=== PATIENT | female | born 1945 | race Two or more races ===

== ENCOUNTER 2020-02-20 17:52 | Inpatient (IN) | payer OTHER ==
[~2020-02-20] VITALS: Ht 149.9 cm; Wt 51.4 kg
[2020-02-20 19:06] LABS: Basophils # (auto) 0.1 10 ^3/uL (0-0.2); Basophils % (auto) 0.7 % (0.0-2.0); Eosinophils # (auto) 0.1 10 ^3/uL (0-0.8); Eosinophils % (auto) 1.1 % (0.0-7.0); Hematocrit 44.9 % (36.0-46.0); Hemoglobin 14.1 g/dL (12.2-16.2); Lymphocytes # (auto) 0.7 10 ^3/uL (0.4-5.4); Lymphocytes % (auto) 10.1 % (10.0-50.0); Mean Corpuscular Hemoglobin 27.9 pg (28.0-32.0); Mean Corpuscular Hgb Conc. 31.4 g/dL (32.0-36.0); Monocytes # (auto) 0.7 10 ^3/uL (0-1.3); Monocytes % (auto) 8.9 % (0.0-12.0); Neutrophils # (auto) 5.9 10 ^3/uL (1.6-8.6); Neutrophils % (auto) 79.2 % (37.0-80.0); Platelet Count (auto) 119 10^3/uL (140-450); Red Blood Cells 5.04 10^6/uL (4.0-5.20); Red Cell Distribution Width 19.4 % (11.8-14.3); White Blood Cell 7.4 10^3/uL (4.4-10.8)
[2020-02-20 19:18] LABS: Albumin 2.7 g/dL (3.4-5.0); Anion Gap 10 (5-15); Blood Urea Nitrogen 31 mg/dL (7-18); Calcium 9.3 mg/dL (8.5-10.1); Carbon Dioxide 28 mmol/L (21-32); Chloride 98 mmol/L (98-107); Glucose 68 mg/dL (74-106); Potassium 4.5 mmol/L (3.5-5.1); Sodium 136 mmol/L (136-145)
[2020-02-20 19:20] LABS: Alanine Aminotransferase 13 U/L (13-56); Aspartate Aminotransferase 26 U/L (15-37); BUN/Creatinine Ratio 5.7; GFR African American 10 mL/min; GFR Non-African American 8 mL/min
[2020-02-20 19:22] LABS: Alkaline Phosphatase 98 U/L (45-117); Bilirubin, Total 0.7 mg/dL (0.2-1.0); Total Protein 6.3 g/dL (6.4-8.2)
[2020-02-20 19:42] LABS: INR 1.06 (0.9-1.15)
[2020-02-20] MEDS ORDERED: LABETALOL HCL 5 MG/ML 4ML SYRINGE IV ONE ×2 (19:45→21:15)
[2020-02-20 20:02] LABS: Partial Thromboplastin Time 105.6 sec (23.0-31.2)
[2020-02-20 20:31] LABS: Acetaminophen < 2.0 ug/mL (10-30); Salicylate < 1.7 mg/dL (2.8-20.0)
[2020-02-20] MEDS ORDERED: DexAMETHasone SOD PHOS 10MG/1ML VIAL INJ IV ONE (21:00)
[2020-02-20] MEDS ORDERED: DEXTROSE 50% SYRINGE 50 ML IV ONE (22:30)
[2020-02-20] MEDS ORDERED: DOXYCYCLINE 100MG/250ML 250 ML IV ONE (22:45)
[2020-02-20] MEDS ORDERED: DEXTROSE (50%) 50ML SYRG IV ONE (23:00)
[2020-02-20 23:20] LABS: Urine Bacteria FEW /hpf (None Seen); Urine Blood TRACE /uL (Negative); Urine Specific Gravity 1.006 (1.001-1.035); Urine WBC 2 /hpf (0 - 5)
[2020-02-20 23:39] LABS: Alcohol, Urine < 3.0 mg/dL (0-10); Amphetamine Screen, Urine NEGATIVE (NEGATIVE); Barbiturate Scree,Urine NEGATIVE (NEGATIVE); Benzodiazephine Screen, Urine NEGATIVE (NEGATIVE); Cannabinoid Screen, Urine NEGATIVE (NEGATIVE); Cocaine Screen, Urine NEGATIVE (NEGATIVE); Opiate Scree,Urine NEGATIVE (NEGATIVE); Phencyclidine Screen, Urine NEGATIVE (NEGATIVE)
[2020-02-21] MEDS ORDERED: ONDANSETRON HCL 4 MG/2 ML VIAL IV PRN (00:30)
[2020-02-21] MEDS ORDERED: ACETAMINOPHEN 325 MG TAB PO PRN (00:30)
[2020-02-21] MEDS ORDERED: MORPHINE SULF INJ 2 MG/ML SYRINGE 1ML IV PRN (00:30)
[2020-02-21] MEDS ORDERED: cloNIDine HCL 0.1 MG TAB PO PRN ×2 (00:30→07:45)
[2020-02-21] MEDS ORDERED: NITROGLYCERIN 0.4 MG SL TAB SL PRN (00:30)
[2020-02-21] MEDS ORDERED: cloNIDine HCL 0.1 MG TAB ONE (00:55)
[2020-02-21 01:34] LABS: Magnesium 2.5 mg/dL (1.6-2.6)
[2020-02-21] MEDS ORDERED: hydrALAZINE HCL 20 MG/ML VL ONE (01:37)
[2020-02-21 01:43] LABS: CRP High Sensitivity 4.58 mg/dL (< 0.3)
[2020-02-21] MEDS ORDERED: hydrALAZINE HCL 20 MG/ML VL IV ONE (02:00)
[2020-02-21] MEDS ORDERED: ENALAPRILAT 1.25 MG/ML-1ML VIAL IV ONE (03:30)
[2020-02-21] MEDS ORDERED: LABETALOL HCL 5 MG/ML 4ML SYRINGE IV ONE (06:00)
[2020-02-21] MEDS: DOXYCYCLINE 100MG/250ML 250 ML IV SCH ×2 (08:16→22:00)
[2020-02-21] MEDS ORDERED: ZINC SULFATE 220mg CAP or TAB PO SCH (10:00)
[2020-02-21] MEDS ORDERED: ASCORBIC ACID 1,000 MG TAB PO SCH (10:00)
[2020-02-21] MEDS ORDERED: CARVEDILOL 3.125 MG TAB PO SCH (10:00)
[2020-02-21] MEDS ORDERED: CHOLECALCIFEROL (VITD3) 2,000 UNIT CAP PO SCH (10:00)
[2020-02-21] MEDS: ASPirin 81 mg TAB PO SCH (10:14)
[2020-02-21] MEDS: amLODIPine BESYLATE 5 MG TAB PO SCH (10:15)
[2020-02-21] MEDS: PANTOPRAZOLE 40 MG TAB PO SCH (10:15)
[2020-02-21] MEDS ORDERED: cefTRIAXone 1GM/50ML D5W 50 ML IV ONE (11:45)
--- NOTE | 2020-02-21 12:45 | NUR ---
02/21/2020 1245 Received hard copy from [facility] for in patient stay for 02/21/20 -02/25/20 @ 1000am authorization #[id number].
[2020-02-21] MEDS ORDERED: ENOXAPARIN SOD 60 MG/0.6 ML SYRINGE SC ONE (15:15)
[2020-02-21] MEDS ORDERED: HYDROcodone-ACET 5/325MG TAB PO ONE (21:30)
[2020-02-21] MEDS: ATORVASTATIN 20 MG TAB PO SCH (22:00)
[2020-02-21] MEDS: CARVEDILOL 12.5 MG TAB PO SCH (22:00)
--- NOTE | 2020-02-21 22:40 | NUR ---
assumed care of pt at this time. no s/s of distress, however pt is stating that she does not want to be here. alert with confusion, unable to answer interview questions at this time. tunneled catheter to rt upper chest area, f/c to gravity, and 2 IV to Left are flushing freely. Pt is currently saying she does not want to live and asking why she is here. Pt reassured and hand held for comfort. Pt given marcella care for BM, and extra blanket because stating she is cold. Temp is 97.4.
[2020-02-22 05:49] VITALS: BP 139/83
[2020-02-22 06:48] LABS: Albumin 2.5 g/dL (3.4-5.0); Calcium 9.3 mg/dL (8.5-10.1); Potassium 4.4 mmol/L (3.5-5.1)
[2020-02-22 06:51] LABS: BUN/Creatinine Ratio 6.8; Bilirubin, Total 0.4 mg/dL (0.2-1.0); Total Protein 5.5 g/dL (6.4-8.2)
[2020-02-22 07:06] LABS: Basophils # (auto) 0 10 ^3/uL (0-0.2); Basophils % (auto) 0.5 % (0.0-2.0); Eosinophils # (auto) 0.1 10 ^3/uL (0-0.8); Eosinophils % (auto) 1.3 % (0.0-7.0); Hematocrit 37.3 % (36.0-46.0); Lymphocytes # (auto) 0.7 10 ^3/uL (0.4-5.4); Lymphocytes % (auto) 11.1 % (10.0-50.0); Mean Corpuscular Hemoglobin 28.3 pg (28.0-32.0); Mean Corpuscular Hgb Conc. 32.1 g/dL (32.0-36.0); Monocytes # (auto) 0.5 10 ^3/uL (0-1.3); Neutrophils # (auto) 5.1 10 ^3/uL (1.6-8.6); Neutrophils % (auto) 79.1 % (37.0-80.0); Nucleated Red Blood Cells % 0.1 %; Platelet Count (auto) 113 10^3/uL (140-450); Red Blood Cells 4.23 10^6/uL (4.0-5.20); Red Cell Distribution Width 19.3 % (11.8-14.3); White Blood Cell 6.4 10^3/uL (4.4-10.8)
--- NOTE | 2020-02-22 08:30 | NUR ---
Patient resting comfortably in bed with no distress noted. Sitter at bedside. Patient stable at this time.
[2020-02-22 09:00] VITALS: BP 160/85
[2020-02-22] MEDS: cefTRIAXone 1GM/50ML D5W 50 ML IV SCH (09:33)
[2020-02-22] MEDS: amLODIPine BESYLATE 5 MG TAB PO SCH (09:34)
[2020-02-22] MEDS: PANTOPRAZOLE 40 MG TAB PO SCH (09:34)
[2020-02-22] MEDS: CARVEDILOL 12.5 MG TAB PO SCH ×2 (09:35→22:00)
--- NOTE | 2020-02-22 09:35 | NUR ---
Scheduled po and IV abx given per order. Patient shows signs of confusion. Patient stable with sitter at bedside.
[2020-02-22] MEDS: ASPirin 81 mg TAB PO SCH (09:36)
[2020-02-22] MEDS ORDERED: ENOXAPARIN SOD 60 MG/0.6 ML SYRINGE SC SCH (10:00)
--- NOTE | 2020-02-22 10:25 | NUR ---
Echo in progress. Scheduled IV abx given per order. Patient stable at this time. Sitter also at bedside.
[2020-02-22] MEDS: ASCORBIC ACID 500 MG TAB PO SCH (10:33)
[2020-02-22] MEDS: DOXYCYCLINE 100MG/250ML 250 ML IV SCH ×2 (10:33→22:48)
--- NOTE | 2020-02-22 11:15 | NUR ---
Patient stable with Dr. Li at bedside. Sitter also at bedside.
[2020-02-22 13:00] VITALS: BP 128/73
--- NOTE | 2020-02-22 14:00 | NUR ---
Patient resting comfortably in bed with sitter at bedside; no distress noted at this time. Patient stable.
[2020-02-22 17:00] VITALS: BP 124/71
--- NOTE | 2020-02-22 18:00 | NUR ---
Patient stable throughout shift; sitter at bedside.
--- NOTE | 2020-02-22 19:40 | NUR ---
Opening Shift Note Assumed care of patient, awake and alert, oriented mostly to self only. No S/S of distress/SOB or pain. Instructed on POC and to call for assist PRN, will continue to monitor for changes Q1hr and PRN. Sitter at bedside for patient safety.
[2020-02-22 22:00] VITALS: BP 145/71
--- NOTE | 2020-02-22 22:04 | NUR ---
CONSULT: DR. GLORIA, SPLICER HELPER CALLED RE; CONSULT. AFTER UPDATING MD FOR REASON OF CONSULT, HE STATED HE WILL SEE PT TOMORROW. INFORMED PRIMARY RN AARON Goldman
[2020-02-22] MEDS: ATORVASTATIN 20 MG TAB PO SCH (22:48)
[2020-02-23 05:00] VITALS: BP 134/89
[2020-02-23] MEDS: hydrALAZINE HCL 20 MG/ML VL IV PRN ×2 (05:56→22:49)
--- NOTE | 2020-02-23 07:30 | NUR ---
Patient has no complains at this time, no signs nor symptoms of respiratory distress. Report given to oncoming RN.
[2020-02-23 09:00] VITALS: BP 149/71
--- NOTE | 2020-02-23 09:45 | NUR ---
Patient sitting in chair at bedside; patient stable with Dr. Blancas and sitter at bedside.
[2020-02-23] MEDS: cefTRIAXone 1GM/50ML D5W 50 ML IV SCH (10:09)
--- NOTE | 2020-02-23 10:09 | NUR ---
Patient sitting in chair at bedside. Scheduled IV abx given per order. Patient stable with sitter at bedside.
[2020-02-23] MEDS: amLODIPine BESYLATE 5 MG TAB PO SCH (10:31)
[2020-02-23] MEDS: ASPirin 81 mg TAB PO SCH (10:31)
[2020-02-23] MEDS: PANTOPRAZOLE 40 MG TAB PO SCH (10:31)
--- NOTE | 2020-02-23 10:31 | NUR ---
Scheduled medications po medications given per order. Patient sitting in chair at bedside. Patient stable with sitter at bedside.
[2020-02-23] MEDS: ASCORBIC ACID 500 MG TAB PO SCH (10:32)
[2020-02-23] MEDS: CARVEDILOL 12.5 MG TAB PO SCH ×2 (10:32→21:37)
[2020-02-23] MEDS: DOXYCYCLINE 100MG/250ML 250 ML IV SCH ×2 (10:41→21:37)
[2020-02-23] MEDS ORDERED: SODIUM CHL 0.9% 1000 ML BAG XX ONE (11:30)
[2020-02-23 13:00] VITALS: BP 145/73
--- NOTE | 2020-02-23 14:15 | NUR ---
Patient sitting in chair at bedside; sitter at bedside. Patient stable at this time.
--- NOTE | 2020-02-23 15:50 | NUR ---
Patient sitting in chair with sitter at bedside. Denies any pain at this time. Patient stable.
[2020-02-23 17:00] VITALS: BP 157/88
--- NOTE | 2020-02-23 17:30 | NUR ---
Patient sitting in chair at bedside. Patient stable with sitter at bedside.
--- NOTE | 2020-02-23 18:15 | NUR ---
Patient resting comfortably in bed with sitter at bedside. Patient stable throughout shift.
--- NOTE | 2020-02-23 19:35 | NUR ---
Opening Shift Note Assumed care of patient, awake and alert, oriented mostly to self only. Patient trying to pull IV access and mittal catheter, needed to be re-oriented. No S/S of distress/SOB or pain. Instructed on POC and to call for assist PRN, will continue to monitor for changes Q1hr and PRN. Sitter at bedside for patient safety.
[2020-02-23] MEDS: ATORVASTATIN 20 MG TAB PO SCH (21:38)
[2020-02-23 22:00] VITALS: BP 158/89
[2020-02-24 05:00] VITALS: BP_SYST 150; BP_SYST 186; BP_DIAS 78; BP_DIAS 97
--- NOTE | 2020-02-24 06:49 | NUR ---
Patient resting comfortably in bed, no complains of pain, no signs nor symptoms of respiratory distress. Report will be given to oncoming RN.
--- NOTE | 2020-02-24 07:47 | NUR ---
PATIENT ROUNDS PATIENT LYING IN BED, NO DISTRESS NOTED. RR EQUAL AND NONLABORED, NO SIGNS OF DISTRESS OR DISCOMFORT. BED IN LOWEST POSITION, SIDE RAILS UP X2, CALL LIGHT WITHIN REACH. PATIENT ENCOURAGED TO CALL IF THEY NEED ANYTHING. WILL CONTINUE TO MONITOR. Addendum: 02/24/20 at 0752 by Jeanine Deutsch RN WORKERS COMPENSATION CLAIMS ANALYST AT BEDSIDE.
[2020-02-24 09:00] VITALS: BP 147/82
[2020-02-24] MEDS: CARVEDILOL 12.5 MG TAB PO SCH ×2 (10:00→22:30)
[2020-02-24] MEDS: DOXYCYCLINE 100MG/250ML 250 ML IV SCH ×2 (10:18→22:30)
[2020-02-24] MEDS: amLODIPine BESYLATE 5 MG TAB PO SCH (10:19)
[2020-02-24] MEDS: ASPirin 81 mg TAB PO SCH (10:19)
[2020-02-24] MEDS: ASCORBIC ACID 500 MG TAB PO SCH (10:19)
[2020-02-24] MEDS: cefTRIAXone 1GM/50ML D5W 50 ML IV SCH (10:19)
[2020-02-24] MEDS: PANTOPRAZOLE 40 MG TAB PO SCH (10:20)
--- NOTE | 2020-02-24 12:08 | NUR ---
Nutrition Assessment Notes please see attached link for complete assessment [employer] needs BW 55 [id number] kcals (27-30 kcal/kgBW), Est Protein needs: 66-77 gms/day (1.2-1.4 gm/kgBW r/t HD). Will continue to monitor and reassess prn. Addendum: 02/24/20 at [address] Amended: Links added.
--- NOTE | 2020-02-24 12:15 | NUR ---
PLEATING SUPERVISOR AT BEDSIDE
[2020-02-24 12:54] VITALS: BP 149/82
--- NOTE | 2020-02-24 14:00 | NUR ---
PT RECEIVING DIALYSIS. ATTEMPT P.T. TOMORROW.
[2020-02-24] MEDS: hydrALAZINE HCL 20 MG/ML VL IV PRN (15:45)
--- NOTE | 2020-02-24 16:24 | NUR ---
BP DIALYSIS COMPLETE, PER DESKTOP ANALYST BP IS 180/93, I REASSESSED BLOOD PRESSURE-161/68, PATIENT MEDICATED PER PRN MD ORDERS. BLOOD PRESSURE REASSESSED--131/73. PATIENT NELY IN BED, NO DISTRESSED, SITTER AT BEDSIDE, BED IN LOWEST POSITION, SIDE RAILS UP X2, CALL LIGHT WITHIN REACH.
[2020-02-24 17:00] VITALS: BP 131/73
--- NOTE | 2020-02-24 19:40 | NUR ---
Opening Shift Note Assumed care of patient, asleep, arousable to light stimulus, confused, sitter at bedside. No S/S of distress/SOB or pain. Safety precaution in place, bed in lowest position, call light within reach, will continue to monitor for changes Q1hr and PRN.
[2020-02-24 22:00] VITALS: BP 158/78
--- NOTE | 2020-02-24 22:15 | NUR ---
IF on LW leaking, removed with catheter intact, patient tolerated well IV insertion IV access obtained, via clean sterile technique by inserting 22 gauge catheter at LH after [] attempt(s). IV secured properly. No trauma to site. Patient tolerated well. NOTE: []
[2020-02-24] MEDS: ATORVASTATIN 20 MG TAB PO SCH (22:30)
--- NOTE | 2020-02-25 00:50 | NUR ---
Rounding Patient sleeping at this time, respirations even and unlabored, sitter at bedside, turned every 2 hours, will continue to monitor
[2020-02-25 05:58] VITALS: BP 111/65
[2020-02-25 07:00] LABS: Basophils # (auto) 0 10 ^3/uL (0-0.2); Basophils % (auto) 0.5 % (0.0-2.0); Eosinophils # (auto) 0.1 10 ^3/uL (0-0.8); Eosinophils % (auto) 2.1 % (0.0-7.0); Hematocrit 38.2 % (36.0-46.0); Hemoglobin 12.1 g/dL (12.2-16.2); Lymphocytes # (auto) 0.4 10 ^3/uL (0.4-5.4); Lymphocytes % (auto) 8.4 % (10.0-50.0); Mean Corpuscular Hgb Conc. 31.5 g/dL (32.0-36.0); Mean Corpuscular Volume 88.7 fL (80.0-100.0); Monocytes # (auto) 0.3 10 ^3/uL (0-1.3); Platelet Count (auto) 98 10^3/uL (140-450); Red Blood Cells 4.31 10^6/uL (4.0-5.20); Red Cell Distribution Width 19.4 % (11.8-14.3); White Blood Cell 4.9 10^3/uL (4.4-10.8)
[2020-02-25 07:37] LABS: Potassium 4.5 mmol/L (3.5-5.1)
[2020-02-25 07:44] LABS: Albumin 2.4 g/dL (3.4-5.0); BUN/Creatinine Ratio 5.8; Bilirubin, Total 0.4 mg/dL (0.2-1.0); Total Protein 5.3 g/dL (6.4-8.2)
--- NOTE | 2020-02-25 08:00 | NUR ---
Opening Shift Note Assumed care of patient, awake confused, sitting up in bed supine ,sitter at bedside. No S/S of distress/SOB or pain. Safety precaution in place, bed in lowest position, call light within reach, will continue to monitor for changes Q1hr and PRN.
[2020-02-25 08:33] VITALS: BP 155/74
[2020-02-25] MEDS: cefTRIAXone 1GM/50ML D5W 50 ML IV SCH (09:37)
[2020-02-25] MEDS: DOXYCYCLINE 100MG/250ML 250 ML IV SCH ×2 (10:00→22:41)
[2020-02-25] MEDS: PANTOPRAZOLE 40 MG TAB PO SCH (10:00)
[2020-02-25] MEDS: ASPirin 81 mg TAB PO SCH (10:00)
[2020-02-25] MEDS: ASCORBIC ACID 500 MG TAB PO SCH (10:00)
--- NOTE | 2020-02-25 10:16 | NUR ---
unable to swallow pills. will crush all po medications
--- NOTE | 2020-02-25 10:45 | NUR ---
ACTIVITY PATIENT UNABLE TO SIT UP AT BEDSIDE OR DANGLE, PATIENT IS WEAL AND UNABLE TO SUPPORT TORSO. PATIENT LEFT IN BED ON LEFT SIDE, SITTER AT BEDSIDE. WILL CONTINUE TO MONITOR.
--- NOTE | 2020-02-25 10:47 | NUR ---
PROVIDER AT BEDSIDE.
[2020-02-25 13:00] VITALS: BP 151/60
--- NOTE | 2020-02-25 14:00 | NUR ---
THORACENTESIS PATIENT UNABLE TO SIGN CONSENTS. AWAITING GRAND DAUGHTER TO CALL BACK TO VERBALLY CONSENT TO THORACENTESIS.
--- NOTE | 2020-02-25 15:00 | NUR ---
PATIENT UNABLE TO PARTICIPATE IN P.T. TODAY. ATTEMPT P.T. TOMORROW.
[2020-02-25 17:00] VITALS: BP 183/82
[2020-02-25] MEDS ORDERED: HYDROmorphone HCL 2 MG/ML VL IV ONE (17:00)
--- NOTE | 2020-02-25 17:04 | NUR ---
VERBAL CONSENT FROM GRAND DAUGHTER VENKATA CONFORMED WITH SECOND RN A WITNESS. CONSENTS SIGNED BY 2 RNS.
[2020-02-25] MEDS: CARVEDILOL 12.5 MG TAB PO SCH ×2 (17:18→22:48)
[2020-02-25] MEDS: amLODIPine BESYLATE 5 MG TAB PO SCH (17:18)
--- NOTE | 2020-02-25 18:43 | NUR ---
Mittal catheter dc'd Order to discontinue mittal catheter. Mittal dc'd with clean technique following deflation of balloon. Patient tolerated well with no complaints of pain. Continue care.
--- NOTE | 2020-02-25 19:31 | NUR ---
ENDORSED CONSENT TO NIGHT RN. PATIENT CONSENTED FOR THORACENTESIS AND WILL HAVE PROCEDURE TOMORROW.
--- NOTE | 2020-02-25 19:35 | NUR ---
Opening Shift Note Assumed care of patient, asleep, arousable to light stimulus, confused. Sitter at bedside. No S/S of distress/SOB or pain. Safety precaution in place, bed in lowest position, call light within reach, will continue to monitor for changes Q1hr and PRN.
[2020-02-25 22:00] VITALS: BP 142/78
[2020-02-25] MEDS: ATORVASTATIN 20 MG TAB PO SCH (22:47)
[2020-02-26] VITALS (7 sets, daily range): BP systolic 128–161; BP diastolic 69–85
[2020-02-26] MEDS ORDERED: SODIUM CHL 0.9% 1000 ML BAG XX ONE (07:00)
--- NOTE | 2020-02-26 08:08 | NUR ---
DIALYSIS AT BEDSIDE
--- NOTE | 2020-02-26 08:08 | NUR ---
Opening Shift Note Assumed care of patient, asleep, arousable to light stimulus, confused, speaks cost[place] rican and icelandic sitter at bedside. No S/S of distress/SOB or pain. Safety precaution in place, bed in lowest position, call light within reach, will continue to monitor for changes Q1hr and PRN.
[2020-02-26] MEDS: ASPirin 81 mg TAB PO SCH (10:00)
[2020-02-26] MEDS: PANTOPRAZOLE 40 MG TAB PO SCH (10:00)
--- NOTE | 2020-02-26 14:21 | NUR ---
THORACENTESIS DONE BY DR HALEY IN ULTRASOUND. PT WAS VERY UNCOOPERATIVE AND IT WAS DIFFICULT. PT VSS 166/77-87-20-97%. 700 ML OF FLUID REMOVED. SPECIMEN SENT TO LAB.
--- NOTE | 2020-02-26 14:58 | NUR ---
PT EVALUATED PATIENT PER PHYSICAL THERAPIST CY PATIENT TOO WEAK TO SIT UP OR BARE WEIGHT . THIS RN WITNESS PATIENT REMAINS CONFUSED AND UNABLE TO SIT BED SIDE ON HER OWN. PATIENT REMAINS MAXIMUM ASSISTANCE WITH ALL ADL.
[2020-02-26 15:10] LABS: Band Neutrophils % (manual) 0; Basophils % (manual) 0 (0.0-2.0); Blast Cells 0; Eosinophils % (manual) 0 (0-7); Metamyelocytes % 0; Myelocytes % 0; Promyelocytes % 0; Reactive Lymphocytes 0
--- NOTE | 2020-02-26 15:19 | NUR ---
assessment Patient is a 74 year old female who is confused. Per patients daughter Carlita prior to admission patient lived home with her and needed assistance. Patients PCP is Dr Dillon at [facility]. Patient has a wheelchair for home use. Patient is on service with [facility] Sat at 8am. Patient has an advanced directive and Carlita is POA. Carlita informed me that patient could not finish her dialysis treatment so she came home early. Carlita stated patient was slurring her words and became confused so she called 911 and patient was admitted. When PT evaluated patient today patient was very weak and unable to sit or stand. I have offered Carlita various discharge options due to recent hospitalization such as private pay caregivers, home health, and SNF placement. Carlita is requesting SNF placement for patient to get back to her baseline. Jesus MARTINEZ and Dr Blancas have been notified. Carlita verbalized understanding and agreed to SNF placement. Addendum: 02/26/20 at 1527 by Kaycee HA Amended: Links added.
[2020-02-26 15:21] LABS: Nucleated Red Blood Cells % 0.2 %; Platelet Count (auto) 94 10^3/uL (140-450)
--- NOTE | 2020-02-26 15:22 | NUR ---
SPOKE WITH CG THE GRAND DAUGHTER VENKATA.[phone]. CG DOES NOT WANT PATIENT TO COME HOME UNTIL PATIENT IS ABLE TO USE HER WALKER AGAIN , REQUESTING PHYSICAL THERAPY.
--- NOTE | 2020-02-26 15:25 | NUR ---
UPDATED PROVIDER PATIENTS CG VENKATA REFUSING PATIENT TO RETURN HOME AND IS REQUESTING SNF. VIVIANE Stoner UPDATED VIVIANE STATED SHE WILL UPDATE CM.
[2020-02-26] MEDS: amLODIPine BESYLATE 5 MG TAB PO SCH (17:49)
[2020-02-26] MEDS: ASCORBIC ACID 500 MG TAB PO SCH (17:49)
[2020-02-26] MEDS: CARVEDILOL 12.5 MG TAB PO SCH ×2 (17:50→21:24)
[2020-02-26] MEDS: cefTRIAXone 1GM/50ML D5W 50 ML IV SCH (17:51)
[2020-02-26 18:00] LABS: White Blood Cell 5.5 10^3/uL (4.4-10.8)
[2020-02-26 18:01] LABS: Lymphocytes % (manual) 11 (10.0-50.0); Monocytes % (manual) 6 (0-12)
--- NOTE | 2020-02-26 19:28 | NUR ---
ENDORSED CARE TO NIGHT RN
--- NOTE | 2020-02-26 19:57 | NUR ---
Telemetry admit from VENKATA CALLAHAN admitted to Telemetry unit after SBAR received. Patient oriented to Alexa irvin RN, unit, room, bed, and unit policies regarding patient care and visiting hours. Patient now on continuous telemetry monitoring, tele box # 32 and telemetry reading on arrival to unit is SR69. Patient placed on bedside oxygen, weighed by bed scale and encouraged to call if they need something. All questions and concerns addressed, patient verbalized understanding. Note: Came per wheelchair, awake alert oriented x4, placed in the bed comfortably, vital signs checked. Addendum: 02/26/20 at 2025 by Alexa Camarillo RN Wrong note, wrong patient. Addendum: 02/26/20 at 2330 by Alexa Camarillo RN wrong charting, wrong patient.
--- NOTE | 2020-02-26 20:00 | NUR ---
Opening Shift Note Assumed care of patient, awake and alert. No S/S of distress/SOB or pain. Instructed on POC and to call for assist PRN, will continue to monitor for changes Q1hr and PRN.sitter at bedside.
[2020-02-26] MEDS: ATORVASTATIN 20 MG TAB PO SCH (21:24)
--- NOTE | 2020-02-27 00:43 | NUR ---
Paged hospitalist for sleeping pill, patient still awake, tried to remove her oxygen, awaiting reply.
--- NOTE | 2020-02-27 00:52 | NUR ---
returned call Yumiko Bowling returned call, updated on patient status and reason for call, orders received of temazepam 15mg.p.o x one. Continue care.
[2020-02-27] MEDS ORDERED: TEMAZEPAM 15 MG CAP PO ONE (01:00)
[2020-02-27 05:00] VITALS: BP 149/88
--- NOTE | 2020-02-27 07:20 | NUR ---
Care report given to Kyrie Lee, patient is resting no distress.
[2020-02-27 08:51] VITALS: BP 140/76
[2020-02-27] MEDS: CARVEDILOL 12.5 MG TAB PO SCH ×2 (10:00→20:53)
[2020-02-27] MEDS: PANTOPRAZOLE 40 MG TAB PO SCH (10:00)
[2020-02-27] MEDS: ASPirin 81 mg TAB PO SCH (10:00)
--- NOTE | 2020-02-27 11:50 | NUR ---
02/27/20 1150 Faxed to [facility] face sheet, Request for SNF placement, progress notes, discharge summary, SNF placement referral form,PT evaluation, progress notes, COVID.
[2020-02-27] MEDS: amLODIPine BESYLATE 5 MG TAB PO SCH (12:30)
[2020-02-27] MEDS: ASCORBIC ACID 500 MG TAB PO SCH (12:31)
[2020-02-27] MEDS: cefTRIAXone 1GM/50ML D5W 50 ML IV SCH (12:31)
--- NOTE | 2020-02-27 13:50 | NUR ---
ASA MEDICATION HELD D/T LOW PLT 95.
--- NOTE | 2020-02-27 16:29 | NUR ---
15:46 - Contacted [facility] spoke with Kamer[facility], he confirms the fax requesting SNF authorization was received. When inquired what their turn around time for placement was, he inquired why? I advised the member's discharge is being held up by this. Kameron advises he will send a message to the discharge team and since its so late in the day today placement cannot be done today but should be done by tomorrow.
[2020-02-27 17:00] VITALS: BP 125/68
--- NOTE | 2020-02-27 18:43 | NUR ---
PT PATIENT USED FWW WALKER WITH MODERATE ASSISTANCE TO DANGLE AT THE SIDE OF BED. PATIENT TOLERATED WELL.
--- NOTE | 2020-02-27 19:32 | NUR ---
Opening Shift Note Assumed care of patient, awake but confused, alert to self and location only. Bed is in lowest position and locked. Call light within reach. Board updated. Tele box number matches monitor and leads are in correct placement. Sitter at bedside. No S/S of distress/SOB or pain. Instructed on POC and to call for assist PRN, will continue to monitor for changes Q1hr and PRN.
--- NOTE | 2020-02-27 20:32 | NUR ---
Granddaughter, also named Carlita, called and I gave her a brief update on patient's plan of care and transfer to SNF after verifying password.
--- NOTE | 2020-02-27 20:53 | NUR ---
Coreg held for heart rate of 59. BP is 138/68. PRN medications available should SBP increase to 150-160. Will continue to assess.
[2020-02-27] MEDS: ATORVASTATIN 20 MG TAB PO SCH (21:13)
[2020-02-27 22:00] VITALS: BP 138/68
[2020-02-28] MEDS: hydrALAZINE HCL 20 MG/ML VL IV PRN (05:17)
[2020-02-28 05:18] VITALS: BP 158/72
[2020-02-28] MEDS ORDERED: SODIUM CHL 0.9% 1000 ML BAG XX ONE (07:00)
--- NOTE | 2020-02-28 07:30 | NUR ---
Opening Shift Note Assumed care of patient, awake and alert. No S/S of distress/SOB or pain. Instructed on POC and to call for assist PRN, will continue to monitor for changes Q1hr and PRN. Fall precautions in place per safety protocol. sweat box attendant at bedside for patient safety.
[2020-02-28 08:49] VITALS: BP 133/70
[2020-02-28] MEDS: PANTOPRAZOLE 40 MG TAB PO SCH (09:38)
[2020-02-28] MEDS: cefTRIAXone 1GM/50ML D5W 50 ML IV SCH (09:38)
[2020-02-28] MEDS: amLODIPine BESYLATE 5 MG TAB PO SCH (09:39)
[2020-02-28] MEDS: ASPirin 81 mg TAB PO SCH (09:39)
[2020-02-28] MEDS: CARVEDILOL 12.5 MG TAB PO SCH (09:40)
[2020-02-28] MEDS: ASCORBIC ACID 500 MG TAB PO SCH (10:00)
--- NOTE | 2020-02-28 10:05 | NUR ---
02/28/20 Jessica, Called [facility] and spoke with Jennifer tapia, stated they received the packet requesting for SNF placement, stated it was sent to the MD to review, and he will decide on what the patient needs are and how long they will be at the SNF, he will then give authorization and where the patient can go, explain this is holding up the patient's discharge and we are in need of our beds, express to her that I will be calling back.
--- NOTE | 2020-02-28 12:00 | NUR ---
Hospitalist MD Blancas spoke with family regarding patient discharge. Per Patients granddaughter, she does not want patient to be transferred to SNF. Patient's granddaughter is requesting for patient to be discharged home. MD Blancas states, patient may be discharged after dialysis. Will cont to monitor patient.
[2020-02-28 13:00] VITALS: BP 140/61
--- NOTE | 2020-02-28 14:16 | NUR ---
Dialysis done at this time. 2L out, Last BP 146-76 HR 64. Will cont to monitor patient.
--- NOTE | 2020-02-28 14:22 | NUR ---
02/28/20 1410, Called [facility] and spoke with Jennifer Roman and stated she will send a message to Abena MOLINA and have her call me, regarding the SNF for the patient, gave call back information Nicki Mera RN CM @ [phone] ext [phone].
--- NOTE | 2020-02-28 14:57 | NUR ---
Nutrition Followup Notes Wt: 51.4 kg Pt was awake confused with no family by bedside. per records pt with pleural effusion. pt with no distress noted currently on pureed diet with inadequate PO of avg 50% x 2 days per RN doc. pt to have HD today Est [employer] needs BW 55 [id number] kcals (27-30 kcal/kgBW), Est Protein needs: 66-77 gms/day (1.2-1.4 gm/kgBW r/t HD). Will continue to monitor and reassess prn. LABS: No new labs today 02/24: BUN 33 H, CREAT 5.67 H ALB 2.5 L GI: Pt had 1 BM reported today per RN doc BS: 12 high risk. Refer to wound assessment report for full details. PES: Altered nutrition related lab values r.t current chronic medical condition aeb elev RFT mod hypoalb Comments: Will continue to monitor PO intake, skin status, pertinent labs and weight trends. Will f/u in 3-5 days. Rec: 1) refer to [employer] dietitian on DC. 2) consider renal std along with current diet. 3) nephro carb steady 1 carton bid if PO continues to be low. 3) continue current plan of care
[2020-02-28 15:00] VITALS: BP 140/61
--- NOTE | 2020-02-28 17:54 | NUR ---
Discharge instructions given as ordered. Encourage to follow up with PMD as instructed. All questions and concerns addressed. Patient verbalized understanding. Medication reconciliation form completed and copy given to patient. IV removed with catheter intact, pressure dressing applied. Telemetry unit returned to ICU. Patient taken to vehicle via wheelchair with all personal belongings, accompanied by staff. No distress noted at time of departure.
== END 2020-02-28 17:45 | disposition home or self-care (01) | DRG 871 ==
LOC: ER 17:52 → EDBD 17:52 → TELE 17:53 → TELE-CENTR 02-21 22:53
PROVIDERS: ADMIT Nurse Practitioner; ATTEND Family Medicine
PROC: 5A1D70Z Performance of Urinary Filtration, Intermittent, Less than 6 Hours Per Day (ICD-10-PCS; principal; 2020-02-24)
PROC: 5A1D70Z Performance of Urinary Filtration, Intermittent, Less than 6 Hours Per Day (ICD-10-PCS; 2020-02-26)
PROC: 5A1D70Z Performance of Urinary Filtration, Intermittent, Less than 6 Hours Per Day (ICD-10-PCS; 2020-02-28)
DX: A41.9 Sepsis, unspecified organism (principal); J18.9 Pneumonia, unspecified organism; N18.6 End stage renal disease; I21.A1 Myocardial infarction type 2; G93.41 Metabolic encephalopathy; I13.2 Hypertensive heart and chronic kidney disease with heart failure and with stage 5 chronic kidney disease, or end stage renal disease; E87.1 Hypo-osmolality and hyponatremia; I16.1 Hypertensive emergency; Z99.2 Dependence on renal dialysis; I50.9 Heart failure, unspecified; Z03.818 Encounter for observation for suspected exposure to other biological agents ruled out; E78.00 Pure hypercholesterolemia, unspecified; E78.5 Hyperlipidemia, unspecified; F03.90 Unspecified dementia, unspecified severity, without behavioral disturbance, psychotic disturbance, mood disturbance, and anxiety; F17.200 Nicotine dependence, unspecified, uncomplicated; I25.10 Atherosclerotic heart disease of native coronary artery without angina pectoris; Z95.1 Presence of aortocoronary bypass graft; Z86.73 Personal history of transient ischemic attack (TIA), and cerebral infarction without residual deficits; D63.1 Anemia in chronic kidney disease
CPT/HCPCS: 10022; 36415; 70450; 71045; 76604; 76942; 78582; 80053; 80307; 80320; 80329; 81001; 82140; 82728; 82962; 83605; 83615; 83735; 83880; 83986; 84443; 84484; 85025; 85048; 85379; 85610; 85730; 86141; 87040; 87070; 87086; 87205; 87804; 89051; 93005; 93306; 93970; 97110; 99291; G0378; J0696; J1100; J1642; J3490

== ENCOUNTER 2020-09-27 06:27 | Emergency (ER) | payer OTHER ==
[~2020-09-27] VITALS: Ht 167.6 cm; Wt 50.3 kg
[2020-09-27 07:39] LABS: Basophils # (auto) 0.1 10 ^3/uL (0-0.2); Basophils % (auto) 0.6 % (0.0-2.0); Eosinophils # (auto) 0.1 10 ^3/uL (0-0.8); Eosinophils % (auto) 0.7 % (0.0-7.0); Hematocrit 28.5 % (36.0-46.0); Hemoglobin 9.2 g/dL (12.2-16.2); Lymphocytes # (auto) 0.4 10 ^3/uL (0.4-5.4); Lymphocytes % (auto) 4.4 % (10.0-50.0); Mean Corpuscular Hemoglobin 29.8 pg (28.0-32.0); Mean Corpuscular Hgb Conc. 32.4 g/dL (32.0-36.0); Mean Corpuscular Volume 91.8 fL (80.0-100.0); Monocytes # (auto) 0.4 10 ^3/uL (0-1.3); Monocytes % (auto) 4.2 % (0.0-12.0); Neutrophils % (auto) 90.1 % (37.0-80.0); Nucleated Red Blood Cells % 0.1 %; Red Cell Distribution Width 16.4 % (11.8-14.3); White Blood Cell 8.9 10^3/uL (4.4-10.8)
[2020-09-27] MEDS ORDERED: SODIUM CHLORIDE 0.9% 1,000 ML IV ONE (07:45)
[2020-09-27] MEDS ORDERED: ALBUTEROL SULF 2.5 MG/0.5ML(0.5%) NEB SOLN NEB ONE (07:45)
[2020-09-27] MEDS ORDERED: IPRATROPIUM BROM 0.5 MG/2.5ML INH SOL NEB ONE (07:45)
[2020-09-27] MEDS ORDERED: cefTRIAXone 1GM/50ML D5W 50 ML IV ONE (07:45)
[2020-09-27 07:55] LABS: Albumin 2.9 g/dL (3.4-5.0); Calcium 7.8 mg/dL (8.5-10.1); Potassium 4.8 mmol/L (3.5-5.1)
[2020-09-27 07:59] LABS: BUN/Creatinine Ratio 10.9; Bilirubin, Total 0.5 mg/dL (0.2-1.0)
[2020-09-27] MEDS ORDERED: FUROSEMIDE 40 MG/4 ML VIAL IV ONE (12:00)
[2020-09-27 14:42] VITALS: BP 153/97
== END 2020-09-27 15:19 | disposition home or self-care (01) ==
LOC: ER 06:27 → EDBD 06:27 → ER 15:19
DX: J44.1 Chronic obstructive pulmonary disease with (acute) exacerbation (principal); E11.22 Type 2 diabetes mellitus with diabetic chronic kidney disease; I13.11 Hypertensive heart and chronic kidney disease without heart failure, with stage 5 chronic kidney disease, or end stage renal disease; D63.1 Anemia in chronic kidney disease; N18.6 End stage renal disease; E11.65 Type 2 diabetes mellitus with hyperglycemia; J90 Pleural effusion, not elsewhere classified; J18.9 Pneumonia, unspecified organism; Z99.2 Dependence on renal dialysis; Z20.822 Contact with and (suspected) exposure to COVID-19; Z86.73 Personal history of transient ischemic attack (TIA), and cerebral infarction without residual deficits
CPT/HCPCS: 36415; 36600; 71046; 80053; 82805; 83605; 83735; 83880; 84443; 84484; 85025; 87040; 87426; 93005; 94640; 96365; 96375; 99285; C9803; J0696; J1940; J7030; J7644; U0003

== ENCOUNTER 2021-01-27 08:54 | Emergency (ER) | payer OTHER ==
[~2021-01-27] VITALS: Ht 154.9 cm; Wt 68.0 kg
[2021-01-27 09:33] LABS: Basophils # (auto) 0 10 ^3/uL (0-0.2); Basophils % (auto) 0.7 % (0.0-2.0); Eosinophils # (auto) 0.1 10 ^3/uL (0-0.8); Eosinophils % (auto) 1.9 % (0.0-7.0); Hematocrit 35.3 % (36.0-46.0); Hemoglobin 11.8 g/dL (12.2-16.2); Lymphocytes # (auto) 0.6 10 ^3/uL (0.4-5.4); Lymphocytes % (auto) 8.4 % (10.0-50.0); Mean Corpuscular Hemoglobin 29.5 pg (28.0-32.0); Mean Corpuscular Hgb Conc. 33.5 g/dL (32.0-36.0); Mean Corpuscular Volume 88.1 fL (80.0-100.0); Monocytes # (auto) 0.4 10 ^3/uL (0-1.3); Monocytes % (auto) 6.7 % (0.0-12.0); Neutrophils # (auto) 5.4 10 ^3/uL (1.6-8.6); Neutrophils % (auto) 82.3 % (37.0-80.0); Red Blood Cells 4.01 10^6/uL (4.0-5.20); White Blood Cell 6.6 10^3/uL (4.4-10.8)
[2021-01-27 09:58] LABS: Albumin 2.7 g/dL (3.4-5.0); Calcium 7.5 mg/dL (8.5-10.1); Potassium 3.9 mmol/L (3.5-5.1)
[2021-01-27 10:03] LABS: BUN/Creatinine Ratio 7.6; Bilirubin, Total 0.4 mg/dL (0.2-1.0); Total Protein 6.7 g/dL (6.4-8.2)
[2021-01-27] MEDS ORDERED: hydrALAZINE HCL 20 MG/ML VL IV ONE (12:45)
[2021-01-27 15:45] VITALS: BP 125/59
[2021-01-27] MEDS ORDERED: ACETAMINOPHEN 500 MG TAB PO ONE (16:45)
== END 2021-01-27 17:02 | disposition admitted as inpatient to this hospital (09) ==
LOC: EDBD 08:54 → ER 08:54
DX: I13.2 Hypertensive heart and chronic kidney disease with heart failure and with stage 5 chronic kidney disease, or end stage renal disease (principal); N18.6 End stage renal disease; I50.9 Heart failure, unspecified; Z99.2 Dependence on renal dialysis; Z86.2 Personal history of diseases of the blood and blood-forming organs and certain disorders involving the immune mechanism; Z86.73 Personal history of transient ischemic attack (TIA), and cerebral infarction without residual deficits; Z88.8 Allergy status to other drugs, medicaments and biological substances
CPT/HCPCS: 36415; 71045; 80053; 83605; 83880; 84484; 85025; 87040; 93005; 96374; 99285; J0360

== ENCOUNTER 2021-07-07 12:24 | Inpatient (IN) | payer OTHER ==
[2021-07-07] VITALS (7 sets, daily range): BP systolic 83–118; BP diastolic 42–63
[~2021-07-07] VITALS: Ht 149.9 cm; Wt 42.0 kg
[2021-07-07] MEDS ORDERED: ETOMIDATE (2MG/ML) 20ML VIAL IV ONE (12:28)
[2021-07-07] MEDS ORDERED: SUCCINYLCHOLINE CHLORIDE 20 MG/ML 10ML VIAL IV ONE (12:28)
[2021-07-07] MEDS ORDERED: MIDAZOLAM DRIP 50 mg/50mL 50 ML IV ONE (12:34)
[2021-07-07] MEDS ORDERED: cefTRIAXone 1GM/50ML D5W 50 ML IV ONE (12:45)
[2021-07-07] MEDS ORDERED: ACETAMINOPHEN 650 MG RECT SUPP PR ONE (12:45)
[2021-07-07] MEDS ORDERED: SODIUM CHLORIDE 0.9% 1,000 ML IVB ONE (12:45)
[2021-07-07 13:09] LABS: Basophils # (auto) 0.2 10 ^3/uL (0-0.2); Basophils % (auto) 1.9 % (0.0-2.0); Eosinophils # (auto) 0 10 ^3/uL (0-0.8); Eosinophils % (auto) 0.1 % (0.0-7.0); Hematocrit 28.2 % (36.0-46.0); Hemoglobin 9.2 g/dL (12.2-16.2); Lymphocytes # (auto) 0.3 10 ^3/uL (0.4-5.4); Lymphocytes % (auto) 2.9 % (10.0-50.0); Mean Corpuscular Hemoglobin 30.2 pg (28.0-32.0); Mean Corpuscular Hgb Conc. 32.7 g/dL (32.0-36.0); Mean Corpuscular Volume 92.3 fL (80.0-100.0); Monocytes # (auto) 0.2 10 ^3/uL (0-1.3); Monocytes % (auto) 2.1 % (0.0-12.0); Neutrophils # (auto) 10.6 10 ^3/uL (1.6-8.6); Red Blood Cells 3.06 10^6/uL (4.0-5.20); Red Cell Distribution Width 15.9 % (11.8-14.3); White Blood Cell 11.4 10^3/uL (4.4-10.8)
[2021-07-07 13:35] LABS: Albumin 2.3 g/dL (3.4-5.0); Calcium 9.6 mg/dL (8.5-10.1); Magnesium 2.9 mg/dL (1.6-2.6); Potassium 4.1 mmol/L (3.5-5.1)
[2021-07-07 13:38] LABS: Lactic Acid w/Reflex 2.6 mmol/L (0.4-2.0)
[2021-07-07 13:40] LABS: BUN/Creatinine Ratio 9.1; Bilirubin, Total 0.7 mg/dL (0.2-1.0); Total Protein 5.9 g/dL (6.4-8.2)
[2021-07-07] MEDS ORDERED: NOREPINEPHRINE 8 MG/250ML KIT 250 ML IV ONE (15:59)
[2021-07-07] MEDS ORDERED: SODIUM CHLORIDE 0.9% 1,000 ML IV ONE (16:00)
[2021-07-07] MEDS ORDERED: NOREPINEPHRINE 8 MG/250ML KIT 250 ML IV SCH (16:00)
[2021-07-07] MEDS ORDERED: MORPHINE SULFATE INJECTION 2 MG/ML SYRG IV PRN ×4 (17:15→21:15)
[2021-07-07] MEDS ORDERED: NITROGLYCERIN 0.4 MG SL TAB SL PRN ×2 (17:15→21:15)
[2021-07-07] MEDS ORDERED: ENOXAPARIN SOD 80 MG/0.8ML SYRINGE SC ONE (17:15)
[2021-07-07] MEDS: MIDAZOLAM DRIP 50 mg/50mL 50 ML IV SCH (17:15)
[2021-07-07] MEDS ORDERED: WARF2TAB49 PO (17:38)
[2021-07-07] MEDS ORDERED: QUET1TAB11 PO (17:39)
[2021-07-07] MEDS ORDERED: CARV3.1240 PO (17:39)
[2021-07-07] MEDS ORDERED: CINA90TA PO (17:40)
[2021-07-07] MEDS ORDERED: ALBUAER3 IN (17:44)
[2021-07-07] MEDS ORDERED: AMLO-489 PO (17:45)
[2021-07-07] MEDS ORDERED: HYDR-5192 EX (17:45)
[2021-07-07] MEDS ORDERED: ATOR40TA52 PO (17:45)
[2021-07-07] MEDS ORDERED: LACT10SO3 PO (17:46)
[2021-07-07] MEDS ORDERED: ONDA-188 PO (17:46)
[2021-07-07] MEDS ORDERED: PREN27TA7 PO (17:47)
[2021-07-07] MEDS ORDERED: HEPARIN SODIUM (PORCINE) 5000 UNITS/ML 1ML VIAL IV ONE (18:00)
[2021-07-07] MEDS ORDERED: HEPARIN DRIP/D5W 100UNITS/ML 250 ML IV SCH (18:00)
[2021-07-07] MEDS ORDERED: fentaNYL Drip 2500mCg/250mlNS 250 ML IV SCH (18:30)
[2021-07-07 18:51] LABS: Hemoglobin 8.9 g/dL (12.2-16.2); Mean Corpuscular Hemoglobin 30.5 pg (28.0-32.0)
[2021-07-07 19:16] LABS: Hematocrit 26.9 % (36.0-46.0); Mean Corpuscular Hgb Conc. 33.1 g/dL (32.0-36.0); Mean Corpuscular Volume 92.2 fL (80.0-100.0); Red Blood Cells 2.92 10^6/uL (4.0-5.20)
[2021-07-07 19:19] LABS: Basophils % (manual) 0 (0.0-2.0); Blast Cells 0; Eosinophils % (manual) 0 (0-7); Promyelocytes % 0; Reactive Lymphocytes 0
[2021-07-07 19:22] LABS: INR 1.49 (0.9-1.15)
[2021-07-07 19:56] LABS: Band Neutrophils % (manual) 9; Lymphocytes % (manual) 9 (10.0-50.0); Metamyelocytes % 1; Monocytes % (manual) 4 (0-12); Myelocytes % 1
[2021-07-07] MEDS ORDERED: PANTOPRAZOLE 40 MG/10 ML VIAL INJ IV ONE (20:00)
[2021-07-07] MEDS ORDERED: DESMOPRESSIN IV ONE (20:15)
[2021-07-07] MEDS ORDERED: SODIUM CHL 0.9% IV ONE (20:15)
[2021-07-07] MEDS ORDERED: METOCLOPRAMIDE HCL 5MG/ml INJ 2ml VIAL IV PRN (21:15)
[2021-07-07] MEDS ORDERED: hydrALAZINE HCL 20 MG/ML VL IV PRN (21:15)
[2021-07-07] MEDS ORDERED: VANCOMYCIN PER PHARMACY 1,000 MG IV SCH (21:15)
[2021-07-07] MEDS ORDERED: HYDROcodone-ACET 5/325MG TAB PO PRN (21:15)
[2021-07-07] MEDS ORDERED: DOCUSATE SOD 100 MG CAP PO PRN (21:15)
[2021-07-07] MEDS ORDERED: ATORVASTATIN 20 MG TAB PO ONE (21:15)
[2021-07-07] MEDS ORDERED: ALUM & MAG HYDROX-SIMETH LIQ(MAALOX) 30 ML PO PRN (21:15)
[2021-07-07] MEDS ORDERED: LORazepam 2MG/ML-1ML VIAL IV PRN (21:15)
[2021-07-07] MEDS ORDERED: METOPROLOL SUCCINATE XL 50 MG TAB PO ONE (21:15)
[2021-07-07] MEDS ORDERED: VANCOMYCIN 750mg/250ml 250 ML IV ONE (21:30)
[2021-07-07] MEDS ORDERED: ATORVASTATIN 20 MG TAB PO SCH (22:00)
[2021-07-07] MEDS ORDERED: QUEtiapine FUMARATE 100 MG TAB PO SCH (22:00)
[2021-07-07] MEDS: PIPERACILLIN-TAZOB 2.25GM 50 ML IV SCH (22:04)
[2021-07-07 23:26] LABS: Lactic Acid w/Reflex 2.4 mmol/L (0.4-2.0)
[2021-07-08] MEDS ORDERED: PIPERACILLIN-TAZOB 3.375GM 100 ML IV SCH
[2021-07-08 03:30] VITALS: BP 104/47
[2021-07-08 06:09] VITALS: BP 90/44
[2021-07-08] MEDS: PIPERACILLIN-TAZOB 2.25GM 50 ML IV SCH (06:56)
[2021-07-08 07:48] VITALS: BP 90/51
[2021-07-08 07:48] LABS: Basophils # (auto) 0 10 ^3/uL (0-0.2); Basophils % (auto) 0.3 % (0.0-2.0); Eosinophils # (auto) 0.1 10 ^3/uL (0-0.8); Hematocrit 32.3 % (36.0-46.0); Hemoglobin 10.8 g/dL (12.2-16.2); Lymphocytes # (auto) 0.9 10 ^3/uL (0.4-5.4); Lymphocytes % (auto) 11.3 % (10.0-50.0); Mean Corpuscular Hemoglobin 30.8 pg (28.0-32.0); Mean Corpuscular Hgb Conc. 33.6 g/dL (32.0-36.0); Mean Corpuscular Volume 91.7 fL (80.0-100.0); Monocytes # (auto) 0.5 10 ^3/uL (0-1.3); Monocytes % (auto) 6.9 % (0.0-12.0); Neutrophils # (auto) 6.1 10 ^3/uL (1.6-8.6); Neutrophils % (auto) 80.5 % (37.0-80.0); Red Blood Cells 3.52 10^6/uL (4.0-5.20); Red Cell Distribution Width 16.3 % (11.8-14.3); White Blood Cell 7.6 10^3/uL (4.4-10.8)
[2021-07-08] MEDS: MIDAZOLAM DRIP 50 mg/50mL 50 ML IV SCH ×2 (08:05→13:23)
[2021-07-08 08:07] LABS: Albumin 1.8 g/dL (3.4-5.0); Calcium 8.1 mg/dL (8.5-10.1); Magnesium 3.1 mg/dL (1.6-2.6)
[2021-07-08 08:11] LABS: % Iron Saturation 37.2 % (15-50)
[2021-07-08 08:20] LABS: BUN/Creatinine Ratio 13.1; Bilirubin, Total 1.1 mg/dL (0.2-1.0); Phosphorus 4.3 mg/dL (2.5-4.90)
[2021-07-08 09:24] LABS: INR 2.07 (0.9-1.15)
[2021-07-08 09:27] LABS: Potassium 6.1 mmol/L (3.5-5.1)
[2021-07-08 09:28] LABS: Partial Thromboplastin Time > 139.0 sec (23.6-33.0)
[2021-07-08 09:59] VITALS: BP 90/51
[2021-07-08] MEDS ORDERED: METOPROLOL SUCCINATE XL 50 MG TAB PO SCH (10:00)
[2021-07-08] MEDS ORDERED: PANTOPRAZOLE 40 MG/10 ML VIAL INJ IV SCH (10:00)
[2021-07-08] MEDS ORDERED: VASOPRESSIN 50 UNITS in D5W 5% 247.5 ML IV SCH (10:45)
[2021-07-08] MEDS ORDERED: PHENYLEPHRINE IV 250 ML IV ONE (11:01)
[2021-07-08] MEDS ORDERED: PHENYLEPHRINE IV 250 ML IV SCH (11:15)
[2021-07-08 11:53] LABS: Folate (Folic Acid) 14.75 ng/mL (5.38-24)
[2021-07-08 13:12] VITALS: BP 76/50
[2021-07-08 13:23] VITALS: BP 85/40
[2021-07-08] MEDS ORDERED: EPINEPHrine HCL 1 MG/10 ML SYRG IV ONE (13:24)
[2021-07-08] MEDS ORDERED: ALBUTEROL SULF 2.5 MG/0.5ML(0.5%) NEB SOLN NEB ONE (13:30)
[2021-07-08] MEDS ORDERED: InsuLIN REG 1unit/0.01ml Soln (100units/ml) IV ONE (13:30)
[2021-07-08] MEDS ORDERED: SODIUM BICARBONATE 8.4% INJ 50ML SYRINGE IV ONE (13:30)
[2021-07-08] MEDS ORDERED: DEXTROSE (50%) 50ML SYRG IV ONE (13:30)
[2021-07-08] MEDS ORDERED: VANCOMYCIN 750mg/250ml 250 ML IV ONE (14:45)
== END 2021-07-08 13:25 | DRG 871 ==
LOC: EDBD 12:24 → ER 12:24 → TELE 18:02
PROVIDERS: ADMIT Hospitalist; ATTEND Internal Medicine Pulmonary Disease
PROC: 5A1935Z Respiratory Ventilation, Less than 24 Consecutive Hours (ICD-10-PCS; principal; 2021-07-07)
PROC: 0BH17EZ Insertion of Endotracheal Airway into Trachea, Via Natural or Artificial Opening (ICD-10-PCS; 2021-07-07)
PROC: 06HN33Z Insertion of Infusion Device into Left Femoral Vein, Percutaneous Approach (ICD-10-PCS; 2021-07-07)
PROC: 4A143B0 Monitoring of Venous Pressure, Central, Percutaneous Approach (ICD-10-PCS; 2021-07-07)
DX: A41.9 Sepsis, unspecified organism (principal); I21.3 ST elevation (STEMI) myocardial infarction of unspecified site; J18.9 Pneumonia, unspecified organism; J96.01 Acute respiratory failure with hypoxia; N18.6 End stage renal disease; R65.21 Severe sepsis with septic shock; I50.43 Acute on chronic combined systolic (congestive) and diastolic (congestive) heart failure; I13.2 Hypertensive heart and chronic kidney disease with heart failure and with stage 5 chronic kidney disease, or end stage renal disease; D69.6 Thrombocytopenia, unspecified; K29.70 Gastritis, unspecified, without bleeding; E78.5 Hyperlipidemia, unspecified; Z20.822 Contact with and (suspected) exposure to COVID-19; E87.5 Hyperkalemia; I25.5 Ischemic cardiomyopathy; I46.9 Cardiac arrest, cause unspecified; Z79.899 Other long term (current) drug therapy; Z86.73 Personal history of transient ischemic attack (TIA), and cerebral infarction without residual deficits; Z95.1 Presence of aortocoronary bypass graft; Z99.2 Dependence on renal dialysis; Z88.8 Allergy status to other drugs, medicaments and biological substances; R57.0 Cardiogenic shock
CPT/HCPCS: 31500; 36415; 36556; 36600; 70450; 71045; 80053; 80061; 80202; 82306; 82607; 82746; 82805; 82962; 83036; 83540; 83550; 83605; 83735; 83880; 84100; 84484; 85007; 85025; 85027; 85379; 85610; 85730; 86850; 86900; 86901; 87040; 87070; 87077; 87147; 87186; 87205; 87426; 93005; 93306; 94002; 94003; 96365; 99291; C9113; G0378; J0330; J0696; J2250; J2543; J7060